=== PATIENT | female | born 1975 | race African-American/Black ===

== ENCOUNTER 2021-08-24 10:47 | Emergency (ER) | payer SELFPAY ==
[2021-08-24] MEDS ORDERED: Ibuprofen 200 MG TAB ONE (11:58)
[2021-08-24] MEDS ORDERED: Acetaminophen 500 MG TAB ONE (11:58)
== END 2021-08-24 12:02 | disposition home or self-care (01) ==
LOC: CSHERS 10:47
DX: M62.830 Muscle spasm of back (principal); R20.2 Paresthesia of skin; I10 Essential (primary) hypertension
CPT/HCPCS: 99283

== ENCOUNTER 2022-08-25 01:36 | Emergency (ER) | payer SELFPAY ==
[2022-08-25] MEDS ORDERED: Ketorolac Tromethamine 30 MG/ML VIAL ONE (01:53)
[2022-08-25] MEDS ORDERED: Ondansetron PF 4 MG/2 ML Vial ONE (01:53)
[2022-08-25 02:12] LABS: BHCG - Serum Negative (NEGATIVE); Pregs Control Background? CLEAR/WHITE (CLR/WHITE); Pregs Control Bar Appear? YES (CONTROL BAR)
[2022-08-25 02:21] LABS: ALT (SGPT) 36 U/L (8-55); AST (SGOT) 28 U/L (5-34); Albumin 4.2 g/dL (3.5-5.0); Alkaline Phosphatase 66 U/L (40-110); Anion Gap 12 mmol/L (10-20); BUN (Urea Nitrogen) 11 mg/dL (7.0-18.7); Bilirubin, Total 0.3 mg/dL (0.2-1.2); Calc. Creatinine Clearance 0 mL/min (70-130); Calcium 9.3 mg/dL (7.8-10.44); Carbon Dioxide 27 mmol/L (22-29); Chloride 105 mmol/L (98-107); Estimated GFR 92; Globulin 3.1 g/dL (2.4-3.5); Glucose 107 mg/dL (70-105); Lipase 30 U/L (8-78); Potassium 4.2 mmol/L (3.5-5.1); Protein, Total 7.3 g/dL (6.0-8.3); Sodium 140 mmol/L (136-145)
[2022-08-25 02:36] LABS: #Eosinphils 0.4 10x3/uL (0.0-0.5); #Monocytes 0.8 10x3/uL (0.0-1.1); #Neutrophils 3.8 10x3/uL (1.5-8.4); %Basophils 0.3 % (0.0-2.0); %Eosinophils 3.8 % (0.0-6.0); %Neutrophils 41.7 % (40.0-75.0); Hemoglobin 11.7 g/dL (12.0-15.5); Mean Corpuscular Volume 88.2 fl (81.6-98.3); Mean Platelet Volume 9.5 fl (7.4-10.4); Platelet Count 408 10x3/uL (150-450); RBC Distribution Width 12.5 % (11.5-14.5); White Blood Cell (WBC) Count 9.2 10x3/uL (3.5-10.5)
[2022-08-25] MEDS ORDERED: Dicyclomine 20 MG/2 ML VIAL ONE (03:39)
[2022-08-25 03:41] LABS: Bilirubin Neg (Negative); Blood, Urine Negative (Negative); Glucose, Urine (Dipstick) Normal (Negative); Ketone, Urine Negative (Negative); Leukocyte Negative (Negative); Nitrite Negative (Negative); Protein, Urine (Dipstick) Negative (Neg-Trace); Urobilinogen Normal mg/dL (Less than 2)
[2022-08-25 03:44] LABS: Clarity Clear (Clear)
[2022-08-25] MEDS ORDERED: Simethicone Chewable 80 MG TAB PO SCH (04:15)
[2022-08-25] MEDS ORDERED: Orphenadrine Citrate 60 MG/2 ML VIAL IM SCH (05:00)
[2022-08-25] MEDS ORDERED: Iopamidol 300 61% 100 ML VIAL FS ONE (08:15)
== END 2022-08-25 05:55 | disposition home or self-care (01) ==
LOC: CSHERS 01:36
DX: K52.9 Noninfective gastroenteritis and colitis, unspecified (principal); M54.50 Low back pain, unspecified; I10 Essential (primary) hypertension
CPT/HCPCS: 36415; 74177; 80053; 81003; 83690; 84703; 85025; 93005; 96361; 96372; 96374; 96375; J1885; J2360; J2405; Q9967

== ENCOUNTER 2022-08-29 10:43 | Emergency (ER) | payer SELFPAY | END 2022-08-29 11:20 | disposition home or self-care (01) | LOC: CSHERS 10:43 | DX: M62.830 Muscle spasm of back (principal); I10 Essential (primary) hypertension | CPT/HCPCS: 99283 ==

== ENCOUNTER 2024-06-05 13:34 | Emergency (ER) | payer SELFPAY ==
[2024-06-05] MEDS ORDERED: Lidocaine 1% w/Epinephrine 1:200K 30 ML VIAL ONE (13:52)
== END 2024-06-05 14:36 | disposition home or self-care (01) ==
LOC: CSHERS 13:34
DX: M67.432 Ganglion, left wrist (principal); I10 Essential (primary) hypertension
CPT/HCPCS: 10060

== ENCOUNTER 2025-06-06 12:44 | Emergency (ER) | payer SELFPAY ==
[2025-06-06] MEDS ORDERED: Dexamethasone 4 MG TAB ONE (15:30)
[2025-06-06] MEDS ORDERED: Ketorolac Tromethamine 30 MG (1 mL) VIAL ONE (15:30)
== END 2025-06-06 15:35 | disposition home or self-care (01) ==
LOC: CSHERS 12:44
DX: J02.8 Acute pharyngitis due to other specified organisms (principal); B96.89 Other specified bacterial agents as the cause of diseases classified elsewhere; I10 Essential (primary) hypertension
CPT/HCPCS: 87081; 87428; 87430; 96372; 99283; J1885; J8540